=== PATIENT | male | born 1980 | race Caucasian/White ===

== ENCOUNTER 2021-11-22 16:04 | Outpatient (CLI) | payer BC | END 2021-11-22 16:05 | disposition home or self-care (01) | LOC: CTENTCT 16:04 | PROVIDERS: ATTEND Otolaryngology Plastic Surgery within the Head & Neck | DX: J32.8 Other chronic sinusitis (principal) | CPT/HCPCS: 70486 ==

== ENCOUNTER 2021-12-19 07:04 | Outpatient (CLI) | payer BC | END 2021-12-19 07:05 | disposition home or self-care (01) | LOC: LABBT 07:04 | PROVIDERS: ATTEND Otolaryngology Plastic Surgery within the Head & Neck | DX: Z01.818 Encounter for other preprocedural examination (principal); J34.2 Deviated nasal septum; J34.3 Hypertrophy of nasal turbinates; J32.8 Other chronic sinusitis; J33.9 Nasal polyp, unspecified; K13.79 Other lesions of oral mucosa; J35.1 Hypertrophy of tonsils; Z20.822 Contact with and (suspected) exposure to COVID-19 | CPT/HCPCS: 93005; 93010; U0003; U0005 ==

== ENCOUNTER 2021-12-21 10:44 | Day surgery (SDC) | payer BC ==
[2021-12-20 12:04] VITALS: BMI 37.3
[2021-12-21] MEDS ORDERED: AFRIN NASAL MIST 15 ML BOT ONE ×2 (11:17→15:38)
[2021-12-21] MEDS ORDERED: fentaNYL Citrate/PF 100 MCG/2 ML SYRINGE ONE ×3 (14:21→14:28)
[2021-12-21] MEDS ORDERED: Rocuronium Bromide 10 MG/ML (10ML VIAL) ONE (14:27)
[2021-12-21] MEDS ORDERED: Glycopyrrolate 0.2 MG/ML 5 ML SYRINGE ONE (14:27)
[2021-12-21] MEDS ORDERED: Lidocaine 1% PF 5 ML VIAL ONE (14:27)
[2021-12-21] MEDS ORDERED: Metoprolol Tartrate 5 MG/5 ML VIAL ONE (14:27)
[2021-12-21] MEDS ORDERED: Esmolol 100 MG/10 ML VIAL ONE (14:27)
[2021-12-21] MEDS ORDERED: PROPOFOL 200 MG/20 ML VIAL ONE (14:27)
[2021-12-21] MEDS ORDERED: Dexamethasone 20 MG/5 ML VIAL ONE (14:27)
[2021-12-21] MEDS ORDERED: Ondansetron PF 4 MG/2 ML Vial ONE (14:27)
[2021-12-21] MEDS ORDERED: Lidocaine 1% w/Epinephrine 1:100K 20 ML VIAL ONE (14:36)
[2021-12-21] MEDS ORDERED: methylPREDNISolone Acetate 40 mg/ml Vial ONE ×2 (14:42→15:15)
[2021-12-21] MEDS ORDERED: Ketamine 50 MG/ML (10ML VIAL) ONE (14:42)
[2021-12-21] MEDS ORDERED: Ferric Subsulfate (ASTRINGYN) 8 GM VIAL ONE (14:46)
[2021-12-21] MEDS ORDERED: Fentanyl 100 MCG/2 ML VIAL ONE (16:03)
== END 2021-12-21 18:40 | disposition home or self-care (01) ==
LOC: SDC 10:44
PROVIDERS: ATTEND Otolaryngology Plastic Surgery within the Head & Neck
PROC: 099R8ZZ Drainage of Left Maxillary Sinus, Via Natural or Artificial Opening Endoscopic (ICD-10-PCS; principal; 2021-12-21)
PROC: 099Q8ZZ Drainage of Right Maxillary Sinus, Via Natural or Artificial Opening Endoscopic (ICD-10-PCS; principal; 2021-12-21)
PROC: 0CTNXZZ Resection of Uvula, External Approach (ICD-10-PCS; principal; 2021-12-21)
PROC: 09BL8ZZ Excision of Nasal Turbinate, Via Natural or Artificial Opening Endoscopic (ICD-10-PCS; principal; 2021-12-21)
PROC: 09BT8ZZ Excision of Left Frontal Sinus, Via Natural or Artificial Opening Endoscopic (ICD-10-PCS; principal; 2021-12-21)
PROC: 0CTQXZZ Resection of Adenoids, External Approach (ICD-10-PCS; principal; 2021-12-21)
PROC: 8E09XBZ Computer Assisted Procedure of Head and Neck Region (ICD-10-PCS; principal; 2021-12-21)
PROC: 09SM4ZZ Reposition Nasal Septum, Percutaneous Endoscopic Approach (ICD-10-PCS; principal; 2021-12-21)
PROC: 09BS8ZZ Excision of Right Frontal Sinus, Via Natural or Artificial Opening Endoscopic (ICD-10-PCS; principal; 2021-12-21)
PROC: 0CTPXZZ Resection of Tonsils, External Approach (ICD-10-PCS; principal; 2021-12-21)
DX: J35.03 Chronic tonsillitis and adenoiditis (principal); K13.79 Other lesions of oral mucosa; G47.33 Obstructive sleep apnea (adult) (pediatric); J32.8 Other chronic sinusitis; J34.2 Deviated nasal septum; J34.3 Hypertrophy of nasal turbinates; J33.8 Other polyp of sinus; J34.89 Other specified disorders of nose and nasal sinuses; Z79.899 Other long term (current) drug therapy; Z88.5 Allergy status to narcotic agent
CPT/HCPCS: 88304; C2625; J1100; J2405; J2704; J2920; J3010